=== PATIENT | female | born 1990 | race Caucasian/White ===

== ENCOUNTER 2016-06-20 17:45 | Emergency (ER) | payer BC, MEDICAID ==
[2016-06-20 18:07] VITALS: BMI 37.0
[2016-06-20 18:19] LABS: RBC/URINE 0-2 (0-5); WBC/URINE 0-2 (0-5)
[2016-06-20] MEDS ORDERED: ONDANSETRON HCL 4 MG/2 ML VIAL IV ONE (18:21)
[2016-06-20] MEDS ORDERED: NS 1,000 ML IV ONE (18:21)
[2016-06-20] MEDS ORDERED: MORPHINE 4 MG/ML INJECTION IV ONE (18:21)
[2016-06-20 18:23] LABS: LEUKOCYTES/URINE TRACE (NEGATIVE); NITRITE/URINE NEG (NEGATIVE); URINE OCCULT BLOOD NEG (NEG/TRACE)
--- NOTE | 2016-06-20 18:23 | EDPRACDOC ---
- General Information Chief Complaint: Abdominal Pain Stated Complaint: ABD AND BACK PAIN Time Seen by Provider: 06/20/16 18:18 Information Source: Patient Mode Of Arrival: Car Home Medications: Home Medications Doxycycline Hyclate 100 mg PO BID #20 tablet 05/09/15 Ibuprofen Tablet [Motrin] 800 mg PO TID #30 tab 05/09/15 Metronidazole [Flagyl] 500 mg PO Q6 #40 tab 05/09/15 Dicyclomine HCl [Bentyl] 20 mg PO Q8H PRN #20 tab 06/20/16 Polyethylene Glycol 3350 [Miralax] 17 gm PO DAILY PRN #119 grams 06/20/16 Allergies/Adverse Reactions: Allergies Allergy/AdvReac Type Severity Reaction Status Date / Time acetaminophen Allergy Itching Verified 06/20/16 18:08 [From Tylenol-Codeine #3] codeine phosphate Allergy Itching Verified 06/20/16 18:08 [From Tylenol-Codeine #3] - History of Present Illness Onset: SATURDAY HPI: Pt c/o R sided abd pain x 3-4 days with n/v. Denies fever, cough, congestion, cp , sob, changes in bowel or bladder, rash. Pt states feels like previous kidney stone. Hx cholecystectomy Pain Location: Reports: RUQ, RLQ, Flank Pain Context: Reports: Spontaneous Pain Severity: Moderate Pain Quality: Reports: Aching, Sharp Pain Radiation: Reports: Flank Last Menstrual Period: JUN 03 : No Adult Abdominal History: Reports: Abdominal Surgery Female Abdominal History: Reports: Abdominal Surgery, UTI (WITH FIRST ) Modifying Factors: improves with: Nothing Female Associated Signs & Symptoms: Reports: Nausea, Vomiting Oral Intake: Decreased Urinary Output: Normal ED Past Medical History - History Reviewed Yes Nurses notes reviewed and agree except as marked - Patient Medical History GI/ History: Reports: Urinary Tract Infection (WITH FIRST ), Kidney Stones Psychological History: Reports: Depression Systemic History: Denies: Cancer Surgical History: Reports: Cholecystectomy - Family Medical History Reports: Hypertension (MOTHER) - Social Medical History Smoking Status: Heavy tobacco smoker (5 or more cigarettes/day or daily pipe/ cigar) ETOH: None Substance Abuse: None EDM Review of Systems - Review of Systems Constitutional: No Symptoms Reported. negative: Fever, Chills, Weakness, Fatigue, Loss of Appetite Ears: No Symptoms Reported. negative: Pain, Hearing Loss, Drainage, Ear Pulling Throat: No Symptoms Reported. negative: Pain, Swelling Nose: No Symptoms Reported. negative: Congestion, Bleeding, Discharge, Injection, Swelling, Deformity, Ecchymosis, Tender, Abrasion, Laceration Mouth: No Symptoms Reported. negative: Pain, Drooling Respiratory: No Symptoms Reported. negative: Cough, Brassy Cough, Barky Cough, Shortness of Breath, Wheezing, Hemoptysis Cardiovascular: No Symptoms Reported. negative: Chest Pain, Palpitations, Syncope, Edema, Orthopnea, PND, Skin Mottling, Cyanosis Gastrointestinal: Nausea, Pain, Vomiting Genitourinary: No Symptoms Reported. negative: Dysuria, Hematuria, Frequency, Discharge, Bleeding, Testicular Pain, Neurological: No Symptoms Reported. negative: Headache, Dizziness, Seizure, Numbness, Weakness, Speech Difficulty, Gait Difficulty Musculoskeletal: Back Integumentary: No Symptoms Reported. negative: Itching, Rash, Bruising, Wound Allergic/Immunologic: No Symptoms Reported. negative: Hives, Itching Hematologic: No Symptoms Reported. negative: Lymphadenopathy, Easy Bruising, Easy Bleeding Psychiatric: No Symptoms Reported. negative: Anxiety, Depression, Hallucinations, Insomnia, Suicidal - Physical Exam Constitutional: Alert Oriented to: Time, Person, Place Last recorded Vital Signs: Last Vital Signs Temp 98.4 F 06/20/16 18:03 Pulse 93 06/20/16 18:18 Resp 20 06/20/16 18:18 BP 140/63 06/20/16 18:18 Pulse Ox 98 06/20/16 18:18 Oxygen Pulse Oxygen Saturation 98 O2 Device Room Air Oxygen Flow Rate Fraction of Inspired Oxygen ( FIO2) - HEENT Head: Normal ( normocephalic) Eye Exam: Normal (PERRL, EOMI, Sclera white) Neck: Normal (FROM, trachea at midline) - Respiratory/Cardiovascular Respiratory: Normal - CTA (BBS clear to auscultation without adventitious sounds ) Cardiovascular: Normal (RRR without murmur, gallop or rub) - GI Auscultation: Normal (NABS) Palpation: Normal (Soft,No rebound or guarding, non distended) Tenderness: Diffuse, Moderate Fuller's Sign: Positive - Musculoskeletal Back: CVA Tenderness (R) Extremities: Normal (Normal tone, Pulses 2+ No cyanosis or edema, FROM) - Integumentary Skin: Normal, Warm, Dry Lymphatics: Normal (no adenopathy) - Neurologic Memory Impaired: Normal Motor Function: Normal (Normal tone, Pulses 2+ No cyanosis or edema, FROM) Mood Description: Normal Perception: Normal Image: 1 - pain when asked to point - Differential Diagnosis Constipation, Gastroenteritis, Pancreatitis, PUD, UTI, Ureterolithiasis, Other ( pyelonephritis) - Results 06/20/16 18:30 06/20/16 18:30 WBC 9.3 xk/uL (3.8-10.8) 06/20/16 18:30 RBC 4.42 xM/uL (4.20-5.40) 06/20/16 18:30 Hgb 13.1 g/dL (12.0-16.0) 06/20/16 18:30 Hct 38.6 % (36-47) 06/20/16 18:30 MCV 87 fL (81-99) 06/20/16 18:30 MCH 29.7 pg (27-32) 06/20/16 18:30 MCHC 34.0 g/dl (33-36) 06/20/16 18:30 RDW 12.4 % (11.5-14.5) 06/20/16 18:30 Plt Count 249 xk/uL (130-400) 06/20/16 18:30 MPV 9.1 fL (7.4-10.4) 06/20/16 18:30 Neut % (Auto) 59.0 % (45-76) 06/20/16 18:30 Lymph % (Auto) 25.4 % (17-44) 06/20/16 18:30 [place] % (Auto) 9.6 % (3-10) 06/20/16 18:30 Eos % (Auto) 4.9 % (0-5) 06/20/16 18:30 Baso % (Auto) 1.1 % (0-2) 06/20/16 18:30 Absolute Neuts (auto) 5.49 xk/uL (1.7-8.2) 06/20/16 18:30 Absolute Lymphs (auto) 2.33 xk/uL (0.65-4.75) 06/20/16 18:30 Sodium 141 mEq/L (137-146) 06/20/16 18:30 Potassium 4.1 mEq/L (3.5-5.1) 06/20/16 18:30 Chloride 105 mEq/L (98-107) 06/20/16 18:30 Carbon Dioxide 24 mMOL/L (22-33) 06/20/16 18:30 Anion Gap 16 mEq/L (8-16) 06/20/16 18:30 BUN 15 MG/DL (7-17) 06/20/16 18:30 Creatinine 0.60 MG/DL (0.52-1.04) 06/20/16 18:30 Estimated GFR (MDRD) > 60 mL/min (>=60) 06/20/16 18:30 Glucose 97 MG/DL (70-99) 06/20/16 18:30 Calculated Osmolality 272 MOs/Kg (270-290) 06/20/16 18:30 Calcium 9.3 MG/DL (8.4-10.2) 06/20/16 18:30 Total Bilirubin 0.3 MG/DL (0.2-1.3) 06/20/16 18:30 AST 19 IU/L (14-36) 06/20/16 18:30 ALT 30 IU/L (9-52) 06/20/16 18:30 Alkaline Phosphatase 75 IU/L (38-126) 06/20/16 18:30 Total Protein 7.2 G/DL (6.3-8.2) 06/20/16 18:30 Albumin 4.3 G/DL (3.5-5.0) 06/20/16 18:30 Lipase 93 U/L (23-300) 06/20/16 18:30 Urine Color Yellow 06/20/16 17:49 Urine Clarity Clear 06/20/16 17:49 Urine pH 7.0 (5.0-8.0) 06/20/16 17:49 Ur Specific [place] 1.010 (1.003-1.035) 06/20/16 17:49 Urine Protein 1+ (NEG/TRACE) H 06/20/16 17:49 Urine Glucose (UA) Neg (NEGATIVE) 06/20/16 17:49 Urine Ketones Neg (NEGATIVE) 06/20/16 17:49 Urine Occult Blood Neg (NEG/TRACE) 06/20/16 17:49 Urine Nitrite Neg (NEGATIVE) 06/20/16 17:49 Urine Bilirubin Neg (NEGATIVE) 06/20/16 17:49 Urine Urobilinogen 0.2 MG/DL (0-1) 06/20/16 17:49 Ur Leukocyte Esterase Trace (NEGATIVE) 06/20/16 17:49 Urine RBC 0-2 (0-5) 06/20/16 17:49 Urine WBC 0-2 (0-5) 06/20/16 17:49 Ur Epithelial Cells 1+ 06/20/16 17:49 Urine Mucus Occ (NEG/OCC) 06/20/16 17:49 Urine Test Neg (NEGATIVE) 06/20/16 17:49 Lab Results 06/20/16 06/20/16 06/20/16 18:30 18:30 17:49 WBC 9.3 RBC 4.42 Hgb 13.1 Hct 38.6 MCV 87 MCH 29.7 MCHC 34.0 RDW 12.4 Plt Count 249 MPV 9.1 Neut % (Auto) 59.0 Lymph % (Auto) 25.4 [place] % (Auto) 9.6 Eos % (Auto) 4.9 Baso % (Auto) 1.1 Absolute Neuts (auto) 5.49 Absolute Lymphs (auto) 2.33 Sodium 141 Potassium 4.1 Chloride 105 Carbon Dioxide 24 Anion Gap 16 BUN 15 Creatinine 0.60 Estimated GFR (MDRD) > 60 Glucose 97 Calculated Osmolality 272 Calcium 9.3 Total Bilirubin 0.3 AST 19 ALT 30 Alkaline Phosphatase 75 Total Protein 7.2 Albumin 4.3 Lipase 93 Urine Color Yellow Urine Clarity Clear Urine pH 7.0 Ur Specific [place] 1.010 Urine Protein 1+ H Urine Glucose (UA) Neg Urine Ketones Neg Urine Occult Blood Neg Urine Nitrite Neg Urine Bilirubin Neg Urine Urobilinogen 0.2 Ur Leukocyte Esterase Trace Urine RBC 0-2 Urine WBC 0-2 Ur Epithelial Cells 1+ Urine Mucus Occ Urine Test 06/20/16 17:49 WBC RBC Hgb Hct MCV MCH MCHC RDW Plt Count MPV Neut % (Auto) Lymph % (Auto) [place] % (Auto) Eos % (Auto) Baso % (Auto) Absolute Neuts (auto) Absolute Lymphs (auto) Sodium Potassium Chloride Carbon Dioxide Anion Gap BUN Creatinine Estimated GFR (MDRD) Glucose Calculated Osmolality Calcium Total Bilirubin AST ALT Alkaline Phosphatase Total Protein Albumin Lipase Urine Color Urine Clarity Urine pH Ur Specific [place] Urine Protein Urine Glucose (UA) Urine Ketones Urine Occult Blood Urine Nitrite Urine Bilirubin Urine Urobilinogen Ur Leukocyte Esterase Urine RBC Urine WBC Ur Epithelial Cells Urine Mucus Urine Test Neg - Diagnostic Imaging Abdomen Image interpreted by: Radiologist 06/20/16 19:22 IMPRESSION: 1. No nephrolithiasis. No hydronephrosis or hydroureter. 2. No calcified ureteral calculi. 3. Status postcholecystectomy. 4. Moderate stool noted in right colon and transverse colon. No pericecal inflammation. Normal appendix. 5. Small umbilical hernia containing fat without evidence of acute complication. 6. IUD within anteflexed uterus. Decision Time to Discharge: 19:22 - Departure Disposition: Home Condition: Good Final Diagnosis: Abdominal pain Constipation Qualifiers: Constipation type: unspecified constipation type Qualified Code(s): K59.00 - Constipation, unspecified Instructions: Acute Abdominal Pain (ED), Constipation (ED), High Fiber Diet (ED ) Education/Counseling Given To: Patient Education/Counseling Given Regarding: Diagnosis, Treatment, Follow Up Referrals: None,No Provider [NonStaff] - One Week Kt Peter MD [Staff Physician] - One Week Prescriptions: Dicyclomine HCl [Bentyl] 20 mg PO Q8H PRN #20 tab PRN Reason: Pain Polyethylene Glycol 3350 [Miralax] 17 gm PO DAILY PRN #119 grams PRN Reason: Constipation Additional Instructions: Increase fluids and fiber. Return for worse or different symptoms
[2016-06-20 18:45] LABS: AUTOMATED BASOPHIL 1.1 % (0-2); AUTOMATED EOSINOPHIL 4.9 % (0-5); AUTOMATED LYMPH 25.4 % (17-44); AUTOMATED MONOCYTE 9.6 % (3-10); MPV 9.1 fL (7.4-10.4)
[2016-06-20 18:54] LABS: BLOOD UREA NITROGEN 15 MG/DL (7-17); CALCIUM 9.3 MG/DL (8.4-10.2); CALCULATED OSMOLALITY 272 MOs/Kg (270-290); CHLORIDE 105 mEq/L (98-107); GLUCOSE 97 MG/DL (70-99); SODIUM LEVEL 141 mEq/L (137-146); TOTAL PROTEIN 7.2 G/DL (6.3-8.2)
--- NOTE | 2016-06-20 19:09 | DIRPT ---
CLINICAL DATA: Right flank pain, right upper quadrant pain for 3 days EXAM: CT ABDOMEN AND PELVIS WITHOUT CONTRAST TECHNIQUE: Multidetector CT imaging of the abdomen and pelvis was performed following the standard protocol without IV contrast. COMPARISON: CT abdomen and pelvis 04/28/2012 FINDINGS: Lung bases are unremarkable. Sagittal images of the spine are unremarkable. Unenhanced liver shows no biliary ductal dilatation. Status postcholecystectomy. Unenhanced pancreas, spleen and adrenal glands are unremarkable. Unenhanced kidneys shows no nephrolithiasis. No hydronephrosis or hydroureter. No calcified ureteral calculi are noted. There is a small umbilical hernia containing fat measures 2.4 by 2.3 cm. No evidence of acute complication. No small bowel obstruction. No ascites or free air. No adenopathy. Moderate stool noted in right colon and transverse colon. No pericecal inflammation. Normal appendix. The terminal ileum is unremarkable. IUD is noted within anteflexed uterus. The urinary bladder is partially empty. No calcified calculi are noted within urinary bladder. No distal ureteral calculi are noted. No pelvic ascites or adenopathy. No inguinal and an IMPRESSION: 1. No nephrolithiasis. No hydronephrosis or hydroureter. 2. No calcified ureteral calculi. 3. Status postcholecystectomy. 4. Moderate stool noted in right colon and transverse colon. No pericecal inflammation. Normal appendix. 5. Small umbilical hernia containing fat without evidence of acute complication. 6. IUD within anteflexed uterus. Electronically Signed By: Joe Mejia M.D. On: 06/20/2016 19:06
[2016-06-20 19:39] VITALS: BP 153/74; PULSE 89; TEMP 97.6
== END 2016-06-20 19:45 | disposition home or self-care (01) ==
LOC: EDMC 17:45
DX: R10.84 Generalized abdominal pain (principal); K59.00 Constipation, unspecified; F17.200 Nicotine dependence, unspecified, uncomplicated
CPT/HCPCS: 36415; 74176; 80053; 81001; 81025; 83690; 85025; 96361; 96374; 96375; 99283; J2270; J2405